=== PATIENT | male | born 1955 | race Caucasian/White ===

== ENCOUNTER 2018-02-10 11:16 | Emergency (ER) | payer SELFPAY ==
[2018-02-10 11:24] VITALS: BP 134/56; PULSE 86; TEMP 98.5; BMI 23.1
--- NOTE | 2018-02-10 11:34 | PDOC ---
Suture Removal/Wound Check HPI - History of Present Illness Chief Complaint: Suture/Staple Removal(Here) Stated Complaint: SUTURE REMOVAL Time Seen by Provider: 02/10/18 11:24 History Source: Yes: Patient Exam Limitations: Yes: No Limitations Treated at: [facility] Date of Last ED visit: 02/01/18 - Previous ED Treatment Tetanus Immunization: Yes: Up to Date Antibiotics Prescribed: No - Onset of Previous Treatment Date of Occurence: 02/01/18 Past History - Past Medical History Allergies/Adverse Reactions: Allergies Allergy/AdvReac Type Severity Reaction Status Date / Time No Known Allergies Allergy Verified 02/01/18 09:33 Home Medications: Ambulatory Orders NK [No Known Home Medication] 02/01/18 COPD: No DVT: No Diabetes: Yes HTN: Yes - Suicide/Smoking/Psychosocial Hx Smoking History: Never smoked Information on smoking cessation initiated: No Hx Alcohol Use: No Drug/Substance Use Hx: No Substance Use Type: None *Physical Exam - Vital Signs Last Vital Signs Temp Pulse Resp BP Pulse Ox 98.5 F 86 16 134/56 98 02/10/18 11:21 02/10/18 11:21 02/10/18 11:21 02/10/18 11:21 02/10/18 11:21 Medical Decision Making - Medical Decision Making A/P: 62 y/o male with 3 cindy in right temporal posterior scalp that appears well healed. Removed 3 cindy without difficulty. No bleeding. Patient instructed to keep area clean. The patient verbalizes understanding of all instructions, has no further questions and is awaiting discharge. *DC/Admit/Observation/Transfer Diagnosis at time of Disposition: Encounter for removal of sutures - Discharge Dispostion Disposition: HOME Condition at time of disposition: Good - Referrals - Patient Instructions Printed Discharge Instructions: DI for Suture Removal Print Language: GREEK - Post Discharge Activity
== END 2018-02-10 11:50 | disposition home or self-care (01) ==
LOC: JERFT 11:16
DX: Z48.817 Encounter for surgical aftercare following surgery on the skin and subcutaneous tissue (principal); Z48.02 Encounter for removal of sutures
CPT/HCPCS: 99281-25